=== PATIENT | female | born 1950 | race Two or more races ===

== ENCOUNTER 2020-10-28 21:45 | Inpatient (IN) | payer OTHER, MEDICAID ==
[~2020-10-28] VITALS: Ht 157.5 cm; Wt 76.0 kg
[2020-10-28] MEDS ORDERED: ROCURONIUM 10MG/ML 10ML VIAL IV ONE ×2 (21:55→23:30)
[2020-10-28] MEDS ORDERED: ETOMIDATE (2MG/ML) 20ML VIAL IV ONE ×2 (21:57→23:30)
[2020-10-28] MEDS ORDERED: PROPOFOL 100 ML IV ONE (22:02)
[2020-10-28] MEDS ORDERED: ACCU-CHEK COMFORT CURVE STRIP VI ONE (22:15)
[2020-10-28 22:26] LABS: Basophils # (auto) 0.1 10 ^3/uL (0-0.2); Basophils % (auto) 0.7 % (0.0-2.0); Eosinophils # (auto) 0.1 10 ^3/uL (0-0.8); Eosinophils % (auto) 0.9 % (0.0-7.0); Hematocrit 34.3 % (36.0-46.0); Hemoglobin 10.9 g/dL (12.2-16.2); Lymphocytes # (auto) 3.6 10 ^3/uL (0.4-5.4); Lymphocytes % (auto) 28.8 % (10.0-50.0); Mean Corpuscular Hemoglobin 31.2 pg (28.0-32.0); Mean Corpuscular Hgb Conc. 31.8 g/dL (32.0-36.0); Mean Corpuscular Volume 98.2 fL (80.0-100.0); Monocytes # (auto) 1.3 10 ^3/uL (0-1.3); Monocytes % (auto) 10.1 % (0.0-12.0); Neutrophils # (auto) 7.5 10 ^3/uL (1.6-8.6); Neutrophils % (auto) 59.5 % (37.0-80.0); Nucleated Red Blood Cells % 0.4 %; Red Blood Cells 3.49 10^6/uL (4.0-5.20); Red Cell Distribution Width 16.3 % (11.8-14.3); White Blood Cell 12.5 10^3/uL (4.4-10.8)
[2020-10-28 22:38] LABS: Albumin 3.1 g/dL (3.4-5.0); Magnesium 2.8 mg/dL (1.6-2.6); Potassium 4.8 mmol/L (3.5-5.1)
[2020-10-28 22:45] LABS: BUN/Creatinine Ratio 6.4; Bilirubin, Total 1.1 mg/dL (0.2-1.0); Phosphorus 6.6 mg/dL (2.5-4.90); Total Protein 7.1 g/dL (6.4-8.2)
[2020-10-28] MEDS: PROPOFOL 100 ML IV SCH (23:25)
[2020-10-28] MEDS ORDERED: VANCOMYCIN 1GM/250ML 250 ML IV ONE (23:45)
[2020-10-29] VITALS (73 sets, daily range): BP systolic 81–194; BP diastolic 18–70
[2020-10-29 01:18] LABS: Urine Bacteria FEW /hpf (None Seen); Urine Blood 2+ /uL (Negative); Urine Hyaline Cast FEW /lpf (0 - 2); Urine Specific Gravity 1.013 (1.001-1.035); Urine WBC 29 /hpf (0 - 5); Urine WBC Clumps PRESENT /hpf (None Seen)
[2020-10-29 01:26] LABS: Amphetamine Screen, Urine NEGATIVE (NEGATIVE); Barbiturate Scree,Urine NEGATIVE (NEGATIVE); Benzodiazephine Screen, Urine POSITIVE (NEGATIVE); Cannabinoid Screen, Urine NEGATIVE (NEGATIVE); Cocaine Screen, Urine NEGATIVE (NEGATIVE); Opiate Scree,Urine NEGATIVE (NEGATIVE); Phencyclidine Screen, Urine NEGATIVE (NEGATIVE)
[2020-10-29] MEDS ORDERED: MORPHINE SULF INJ 2 MG/ML SYRINGE 1ML IV PRN (01:30)
[2020-10-29] MEDS ORDERED: VANCOMYCIN PER PHARMACY 0 MG IV SCH (01:30)
[2020-10-29] MEDS ORDERED: DEXTROSE (50%) 50ML SYRG IV PRN (01:30)
[2020-10-29] MEDS ORDERED: ALBUTEROL SULF HFA 90MCG INH 200DOSE IN PRN (01:30)
[2020-10-29] MEDS ORDERED: HYDROcodone-ACET 5/325MG TAB PO PRN (01:30)
[2020-10-29] MEDS ORDERED: NITROGLYCERIN 0.4 MG SL TAB SL PRN (01:30)
[2020-10-29] MEDS ORDERED: REMDESIVIR PER PHARMACY 0 ML IV SCH (01:30)
[2020-10-29] MEDS ORDERED: ONDANSETRON HCL 4 MG/2 ML VIAL IV PRN (01:30)
[2020-10-29] MEDS ORDERED: METOPROLOL TARTRATE 1MG/1ML-5ML VIAL IV PRN (02:00)
[2020-10-29] MEDS: hydrALAZINE HCL 20 MG/ML VL IV PRN (02:53)
[2020-10-29] MEDS: BUDESONIDE (INHALATION) 0.5 MG/2 ML NEB NEB SCH ×2 (06:52→19:01)
[2020-10-29] MEDS: ALBUTEROL SULF 2.5 MG/0.5ML(0.5%) NEB SOLN NEB SCH ×3 (06:52→19:01)
[2020-10-29] MEDS: PROPOFOL 100 ML IV SCH ×2 (08:21→16:17)
[2020-10-29] MEDS: MIDAZOLAM DRIP 50 mg/50mL 50 ML IV SCH ×2 (08:22→16:18)
[2020-10-29] MEDS: NOREPINEPHRINE 8 MG/250ML KIT 250 ML IV SCH (08:25)
[2020-10-29] MEDS: SODIUM CHLOR 0.9% PF (SALINE LOCK) 10ML VIAL/SYR IV SCH ×3 (08:51→22:06)
[2020-10-29] MEDS: DOXYCYCLINE 100MG/250ML 250 ML IV SCH ×2 (08:52→22:06)
[2020-10-29] MEDS: ACCU-CHEK COMFORT CURVE STRIP VI SCH ×4 (08:52→22:13)
[2020-10-29] MEDS: FAMOTIDINE (10MG/ML) 2ML VL IV SCH (08:54)
[2020-10-29] MEDS: DexAMETHasone SOD PHOS 10MG/1ML VIAL INJ IV SCH (08:54)
[2020-10-29] MEDS: ASCORBIC ACID 1,000 MG TAB PO SCH (08:55)
[2020-10-29] MEDS: ZINC SULFATE 220mg CAP or TAB PO SCH (08:55)
[2020-10-29] MEDS: MULTIPLE VITAMIN TAB PO SCH (08:56)
[2020-10-29] MEDS: CHOLECALCIFEROL (VITD3) 2,000 UNIT CAP/TAB PO SCH (08:56)
[2020-10-29] MEDS: HEPARIN SODIUM (PORCINE) 5000 UNITS/ML 1ML VIAL SC SCH ×2 (08:57→22:12)
[2020-10-29 08:59] LABS: BUN/Creatinine Ratio 6.7; Calcium 8.3 mg/dL (8.5-10.1); Potassium 4.9 mmol/L (3.5-5.1)
[2020-10-29] MEDS ORDERED: FUROSEMIDE 40 MG/4 ML VIAL IV SCH (10:00)
[2020-10-29] MEDS ORDERED: BUDESONIDE (INHALATION) 180 MCG IH IN SCH (10:00)
[2020-10-29] MEDS: InsuLIN REG 1unit/0.01ml Soln (100units/ml) SC SCH ×4 (11:30→22:13)
[2020-10-29] MEDS ORDERED: REMDESIVIR 200 MG in NS 210ml LOADING DOSE ADULT IV ONE (15:00)
[2020-10-30] VITALS (97 sets, daily range): BP systolic 103–194; BP diastolic 44–64
[2020-10-30] MEDS ORDERED: EPOETIN ALFA-EPBX 10,000 UNIT/1ML VIAL SC ONE (06:00)
[2020-10-30] MEDS: SODIUM CHLOR 0.9% PF (SALINE LOCK) 10ML VIAL/SYR IV SCH ×3 (06:13→22:02)
[2020-10-30] MEDS: InsuLIN REG 1unit/0.01ml Soln (100units/ml) SC SCH ×4 (06:26→22:00)
[2020-10-30] MEDS: ACCU-CHEK COMFORT CURVE STRIP VI SCH ×4 (06:27→22:02)
[2020-10-30 07:25] LABS: Basophils # (auto) 0 10 ^3/uL (0-0.2); Basophils % (auto) 0.2 % (0.0-2.0); Eosinophils # (auto) 0 10 ^3/uL (0-0.8); Hematocrit 26.1 % (36.0-46.0); Hemoglobin 8.8 g/dL (12.2-16.2); Lymphocytes # (auto) 0.8 10 ^3/uL (0.4-5.4); Mean Corpuscular Hemoglobin 31.5 pg (28.0-32.0); Mean Corpuscular Hgb Conc. 33.9 g/dL (32.0-36.0); Mean Corpuscular Volume 92.9 fL (80.0-100.0); Monocytes # (auto) 0.8 10 ^3/uL (0-1.3); Monocytes % (auto) 7.6 % (0.0-12.0); Neutrophils # (auto) 8.3 10 ^3/uL (1.6-8.6); Neutrophils % (auto) 84.2 % (37.0-80.0); Nucleated Red Blood Cells % 0.1 %; Red Blood Cells 2.81 10^6/uL (4.0-5.20); Red Cell Distribution Width 15.7 % (11.8-14.3); White Blood Cell 9.9 10^3/uL (4.4-10.8)
[2020-10-30 07:35] LABS: Albumin 2.7 g/dL (3.4-5.0); BUN/Creatinine Ratio 8.2; Calcium 7.9 mg/dL (8.5-10.1); Magnesium 2.4 mg/dL (1.6-2.6); Potassium 4.9 mmol/L (3.5-5.1)
[2020-10-30 07:38] LABS: Bilirubin, Total 1.1 mg/dL (0.2-1.0); Total Protein 5.6 g/dL (6.4-8.2)
[2020-10-30] MEDS: NOREPINEPHRINE 8 MG/250ML KIT 250 ML IV SCH (07:45)
[2020-10-30] MEDS ORDERED: SODIUM CHLORIDE LOCK 30 ML ONE (08:32)
[2020-10-30] MEDS ORDERED: LIDOCAINE HCL 2% TOP JELLY 5ML TOP ONE (08:32)
[2020-10-30] MEDS: BUDESONIDE (INHALATION) 0.5 MG/2 ML NEB NEB SCH ×2 (10:00→23:04)
[2020-10-30] MEDS: CHOLECALCIFEROL (VITD3) 2,000 UNIT CAP/TAB PO SCH (10:00)
[2020-10-30] MEDS: ZINC SULFATE 220mg CAP or TAB PO SCH (10:46)
[2020-10-30] MEDS: MULTIPLE VITAMIN TAB PO SCH (10:46)
[2020-10-30] MEDS: ASCORBIC ACID 1,000 MG TAB PO SCH (10:46)
[2020-10-30] MEDS: HEPARIN SODIUM (PORCINE) 5000 UNITS/ML 1ML VIAL SC SCH ×2 (10:46→22:02)
[2020-10-30] MEDS ORDERED: BUMETANIDE 2.5mg/10ml (0.25 mg/ml) INJ IV ONE (13:00)
[2020-10-30] MEDS: PROPOFOL 100 ML IV SCH ×2 (13:55→22:13)
[2020-10-30] MEDS: DexAMETHasone SOD PHOS 10MG/1ML VIAL INJ IV SCH (13:56)
[2020-10-30] MEDS: FAMOTIDINE (10MG/ML) 2ML VL IV SCH (13:56)
[2020-10-30] MEDS ORDERED: REMDESIVIR 100mg 100 MG in SODIUM CHL 0.9% 230 ML IV SCH (15:00)
[2020-10-30] MEDS: ALBUTEROL SULF 2.5 MG/0.5ML(0.5%) NEB SOLN NEB SCH ×3 (15:44→23:04)
[2020-10-30] MEDS ORDERED: VANCOMYCIN 1GM/250ML 250 ML IV ONE (17:00)
[2020-10-30] MEDS: DOXYCYCLINE 100MG/250ML 250 ML IV SCH ×2 (19:53→22:01)
[2020-10-30] MEDS: hydrALAZINE HCL 20 MG/ML VL IV PRN (22:12)
[2020-10-31] VITALS (86 sets, daily range): BP systolic 101–178; BP diastolic 15–75
[2020-10-31] MEDS ORDERED: VANCOMYCIN 1GM/250ML 250 ML IV ONE
[2020-10-31] MEDS: PROPOFOL 100 ML IV SCH ×3 (01:15→22:57)
[2020-10-31] MEDS: SODIUM CHLOR 0.9% PF (SALINE LOCK) 10ML VIAL/SYR IV SCH ×3 (05:08→21:04)
[2020-10-31] MEDS: ACCU-CHEK COMFORT CURVE STRIP VI SCH ×4 (05:09→21:09)
[2020-10-31] MEDS: InsuLIN REG 1unit/0.01ml Soln (100units/ml) SC SCH ×4 (05:09→21:24)
[2020-10-31 05:48] LABS: INR 1.21 (0.9-1.15); Partial Thromboplastin Time 27.2 sec (23.6-33.0)
[2020-10-31 05:56] LABS: Basophils # (auto) 0 10 ^3/uL (0-0.2); Eosinophils # (auto) 0 10 ^3/uL (0-0.8); Hematocrit 27.1 % (36.0-46.0); Hemoglobin 9.3 g/dL (12.2-16.2); Lymphocytes # (auto) 0.5 10 ^3/uL (0.4-5.4); Lymphocytes % (auto) 5.8 % (10.0-50.0); Mean Corpuscular Hemoglobin 31.9 pg (28.0-32.0); Mean Corpuscular Hgb Conc. 34.2 g/dL (32.0-36.0); Mean Corpuscular Volume 93.2 fL (80.0-100.0); Monocytes # (auto) 0.5 10 ^3/uL (0-1.3); Monocytes % (auto) 5.8 % (0.0-12.0); Neutrophils # (auto) 7.8 10 ^3/uL (1.6-8.6); Neutrophils % (auto) 88.4 % (37.0-80.0); Nucleated Red Blood Cells % 0.2 %; Red Blood Cells 2.91 10^6/uL (4.0-5.20); White Blood Cell 8.8 10^3/uL (4.4-10.8)
[2020-10-31 05:59] LABS: Potassium 4.5 mmol/L (3.5-5.1)
[2020-10-31 06:07] LABS: Albumin 2.5 g/dL (3.4-5.0); BUN/Creatinine Ratio 8.6; Bilirubin, Total 1.2 mg/dL (0.2-1.0); Magnesium 2.4 mg/dL (1.6-2.6)
[2020-10-31] MEDS: ALBUTEROL SULF 2.5 MG/0.5ML(0.5%) NEB SOLN NEB SCH ×3 (07:15→18:50)
[2020-10-31] MEDS: BUDESONIDE (INHALATION) 0.5 MG/2 ML NEB NEB SCH ×2 (07:16→18:50)
[2020-10-31] MEDS: NOREPINEPHRINE 8 MG/250ML KIT 250 ML IV SCH (07:45)
[2020-10-31] MEDS: MIDAZOLAM DRIP 50 mg/50mL 50 ML IV SCH (07:45)
[2020-10-31] MEDS: FAMOTIDINE (10MG/ML) 2ML VL IV SCH (09:52)
[2020-10-31] MEDS: DexAMETHasone SOD PHOS 10MG/1ML VIAL INJ IV SCH (09:52)
[2020-10-31] MEDS: DOXYCYCLINE 100MG/250ML 250 ML IV SCH ×2 (09:52→21:05)
[2020-10-31] MEDS: ZINC SULFATE 220mg CAP or TAB PO SCH (09:53)
[2020-10-31] MEDS: ASCORBIC ACID 1,000 MG TAB PO SCH (09:53)
[2020-10-31] MEDS: HEPARIN SODIUM (PORCINE) 5000 UNITS/ML 1ML VIAL SC SCH ×2 (09:53→21:08)
[2020-10-31] MEDS: MULTIPLE VITAMIN TAB PO SCH (09:53)
[2020-10-31] MEDS: CHOLECALCIFEROL (VITD3) 2,000 UNIT CAP/TAB PO SCH (15:42)
[2020-11-01] VITALS (106 sets, daily range): BP systolic 94–176; BP diastolic 27–62
[2020-11-01] MEDS: PROPOFOL 100 ML IV SCH ×5 (01:51→20:14)
[2020-11-01 05:24] LABS: Basophils # (auto) 0 10 ^3/uL (0-0.2); Eosinophils # (auto) 0 10 ^3/uL (0-0.8); Hemoglobin 9.1 g/dL (12.2-16.2); Lymphocytes # (auto) 0.7 10 ^3/uL (0.4-5.4); Lymphocytes % (auto) 7.7 % (10.0-50.0); Mean Corpuscular Hemoglobin 31.5 pg (28.0-32.0); Mean Corpuscular Hgb Conc. 33.9 g/dL (32.0-36.0); Mean Corpuscular Volume 92.9 fL (80.0-100.0); Monocytes # (auto) 0.9 10 ^3/uL (0-1.3); Neutrophils # (auto) 7.2 10 ^3/uL (1.6-8.6); Neutrophils % (auto) 82.3 % (37.0-80.0); Red Cell Distribution Width 16.4 % (11.8-14.3); White Blood Cell 8.8 10^3/uL (4.4-10.8)
[2020-11-01 06:03] LABS: Potassium 4.1 mmol/L (3.5-5.1)
[2020-11-01 06:07] LABS: BUN/Creatinine Ratio 10.9; Calcium 8.4 mg/dL (8.5-10.1); Magnesium 2.6 mg/dL (1.6-2.6)
[2020-11-01] MEDS: ACCU-CHEK COMFORT CURVE STRIP VI SCH ×4 (06:23→21:05)
[2020-11-01] MEDS: InsuLIN REG 1unit/0.01ml Soln (100units/ml) SC SCH ×4 (06:25→21:08)
[2020-11-01] MEDS ORDERED: SODIUM CHL 0.9% 1000 ML BAG XX ONE (07:00)
[2020-11-01] MEDS: BUDESONIDE (INHALATION) 0.5 MG/2 ML NEB NEB SCH ×2 (07:06→22:25)
[2020-11-01] MEDS: ALBUTEROL SULF 2.5 MG/0.5ML(0.5%) NEB SOLN NEB SCH ×3 (07:06→22:25)
[2020-11-01] MEDS: NOREPINEPHRINE 8 MG/250ML KIT 250 ML IV SCH (07:45)
[2020-11-01] MEDS: MIDAZOLAM DRIP 50 mg/50mL 50 ML IV SCH (07:45)
[2020-11-01] MEDS: ZINC SULFATE 220mg CAP or TAB PO SCH (09:52)
[2020-11-01] MEDS: ASCORBIC ACID 1,000 MG TAB PO SCH (09:52)
[2020-11-01] MEDS: DOXYCYCLINE 100MG/250ML 250 ML IV SCH ×2 (09:52→23:34)
[2020-11-01] MEDS: DexAMETHasone SOD PHOS 10MG/1ML VIAL INJ IV SCH (09:52)
[2020-11-01] MEDS: FAMOTIDINE (10MG/ML) 2ML VL IV SCH (09:52)
[2020-11-01] MEDS: MULTIPLE VITAMIN TAB PO SCH (09:52)
[2020-11-01] MEDS: CHOLECALCIFEROL (VITD3) 2,000 UNIT CAP/TAB PO SCH (09:53)
[2020-11-01] MEDS: HEPARIN SODIUM (PORCINE) 5000 UNITS/ML 1ML VIAL SC SCH ×2 (09:54→21:04)
[2020-11-01] MEDS: SODIUM CHLOR 0.9% PF (SALINE LOCK) 10ML VIAL/SYR IV SCH ×2 (11:41→21:02)
[2020-11-01] MEDS: CALCIUM ACETATE 667 MG CAP NG SCH ×2 (14:00→21:03)
[2020-11-01] MEDS ORDERED: Nepro With Carb Steady 1 Liter Bottle GT SCH (16:30)
[2020-11-01] MEDS: MEROPENEM 500MG IVPB 50 ML IV SCH (20:04)
[2020-11-01] MEDS ORDERED: EPOETIN ALFA-EPBX 10,000 UNIT/1ML VIAL SC ONE (21:00)
[2020-11-02] VITALS (100 sets, daily range): BP systolic 104–165; BP diastolic 30–118
[2020-11-02] MEDS: hydrALAZINE HCL 20 MG/ML VL IV PRN (02:42)
[2020-11-02] MEDS: PROPOFOL 100 ML IV SCH ×2 (04:02→08:41)
[2020-11-02] MEDS: BUDESONIDE (INHALATION) 0.5 MG/2 ML NEB NEB SCH ×2 (06:06→18:45)
[2020-11-02] MEDS: ALBUTEROL SULF 2.5 MG/0.5ML(0.5%) NEB SOLN NEB SCH ×3 (06:06→18:45)
[2020-11-02] MEDS: InsuLIN REG 1unit/0.01ml Soln (100units/ml) SC SCH ×4 (06:42→22:05)
[2020-11-02] MEDS: ACCU-CHEK COMFORT CURVE STRIP VI SCH ×4 (06:42→22:04)
[2020-11-02] MEDS: CALCIUM ACETATE 667 MG CAP NG SCH ×3 (06:45→22:03)
[2020-11-02] MEDS: SODIUM CHLOR 0.9% PF (SALINE LOCK) 10ML VIAL/SYR IV SCH ×3 (06:45→22:03)
[2020-11-02] MEDS: NOREPINEPHRINE 8 MG/250ML KIT 250 ML IV SCH (07:45)
[2020-11-02] MEDS: MIDAZOLAM DRIP 50 mg/50mL 50 ML IV SCH (07:45)
[2020-11-02] MEDS: DexAMETHasone SOD PHOS 10MG/1ML VIAL INJ IV SCH (08:40)
[2020-11-02] MEDS: FAMOTIDINE (10MG/ML) 2ML VL IV SCH (08:40)
[2020-11-02] MEDS: MEROPENEM 500MG IVPB 50 ML IV SCH ×2 (08:40→20:10)
[2020-11-02] MEDS: ZINC SULFATE 220mg CAP or TAB PO SCH (08:41)
[2020-11-02] MEDS: ASCORBIC ACID 1,000 MG TAB PO SCH (08:41)
[2020-11-02] MEDS: MULTIPLE VITAMIN TAB PO SCH (08:42)
[2020-11-02] MEDS: CHOLECALCIFEROL (VITD3) 2,000 UNIT CAP/TAB PO SCH (08:42)
[2020-11-02 09:39] LABS: Basophils # (auto) 0 10 ^3/uL (0-0.2); Basophils % (auto) 0.1 % (0.0-2.0); Eosinophils # (auto) 0 10 ^3/uL (0-0.8); Hemoglobin 9.6 g/dL (12.2-16.2); Lymphocytes % (auto) 7.8 % (10.0-50.0); Mean Corpuscular Hemoglobin 30.8 pg (28.0-32.0); Mean Corpuscular Hgb Conc. 33.3 g/dL (32.0-36.0); Mean Corpuscular Volume 92.7 fL (80.0-100.0); Monocytes # (auto) 1.4 10 ^3/uL (0-1.3); Neutrophils # (auto) 10.2 10 ^3/uL (1.6-8.6); Neutrophils % (auto) 81.1 % (37.0-80.0); Red Blood Cells 3.13 10^6/uL (4.0-5.20); Red Cell Distribution Width 16.6 % (11.8-14.3); White Blood Cell 12.5 10^3/uL (4.4-10.8)
[2020-11-02 10:01] LABS: Albumin 2.3 g/dL (3.4-5.0); Calcium 8.2 mg/dL (8.5-10.1); Potassium 4.7 mmol/L (3.5-5.1)
[2020-11-02 10:04] LABS: Total Protein 5.6 g/dL (6.4-8.2)
[2020-11-02] MEDS ORDERED: HEPARIN SODIUM (PORCINE) 5000 UNITS/ML 1ML VIAL ONE (11:09)
[2020-11-02] MEDS: DOXYCYCLINE 100MG/250ML 250 ML IV SCH ×2 (11:22→22:36)
[2020-11-02] MEDS: HEPARIN SODIUM (PORCINE) 5000 UNITS/ML 1ML VIAL SC SCH ×2 (11:23→22:04)
[2020-11-03] VITALS (99 sets, daily range): BP systolic 17–153; BP diastolic 28–50
[2020-11-03] MEDS: PROPOFOL 100 ML IV SCH ×2 (01:39→22:15)
[2020-11-03] MEDS ORDERED: FUROSEMIDE 100 MG/10ML VIAL IV ONE (05:00)
[2020-11-03] MEDS: CALCIUM ACETATE 667 MG CAP NG SCH ×3 (05:06→22:13)
[2020-11-03] MEDS: InsuLIN REG 1unit/0.01ml Soln (100units/ml) SC SCH ×4 (07:00→22:00)
[2020-11-03 07:09] LABS: Basophils # (auto) 0 10 ^3/uL (0-0.2); Basophils % (auto) 0.2 % (0.0-2.0); Eosinophils # (auto) 0 10 ^3/uL (0-0.8); Eosinophils % (auto) 0.1 % (0.0-7.0); Hematocrit 26.9 % (36.0-46.0); Hemoglobin 9.1 g/dL (12.2-16.2); Lymphocytes # (auto) 1.7 10 ^3/uL (0.4-5.4); Lymphocytes % (auto) 17.3 % (10.0-50.0); Mean Corpuscular Hemoglobin 31.3 pg (28.0-32.0); Mean Corpuscular Hgb Conc. 33.9 g/dL (32.0-36.0); Mean Corpuscular Volume 92.5 fL (80.0-100.0); Monocytes # (auto) 1.1 10 ^3/uL (0-1.3); Monocytes % (auto) 11.5 % (0.0-12.0); Neutrophils # (auto) 6.9 10 ^3/uL (1.6-8.6); Neutrophils % (auto) 70.9 % (37.0-80.0); Nucleated Red Blood Cells % 0.1 %; Red Blood Cells 2.91 10^6/uL (4.0-5.20); Red Cell Distribution Width 16.3 % (11.8-14.3); White Blood Cell 9.7 10^3/uL (4.4-10.8)
[2020-11-03] MEDS: SODIUM CHLOR 0.9% PF (SALINE LOCK) 10ML VIAL/SYR IV SCH ×3 (07:17→22:13)
[2020-11-03] MEDS: ACCU-CHEK COMFORT CURVE STRIP VI SCH ×4 (07:17→22:13)
[2020-11-03 07:18] LABS: Calcium 7.7 mg/dL (8.5-10.1); Magnesium 2.6 mg/dL (1.6-2.6); Potassium 4.9 mmol/L (3.5-5.1)
[2020-11-03 07:20] LABS: BUN/Creatinine Ratio 14.7
[2020-11-03] MEDS: MIDAZOLAM DRIP 50 mg/50mL 50 ML IV SCH (07:45)
[2020-11-03] MEDS: NOREPINEPHRINE 8 MG/250ML KIT 250 ML IV SCH ×2 (07:45→17:11)
[2020-11-03] MEDS: MULTIPLE VITAMIN TAB PO SCH (08:25)
[2020-11-03] MEDS: CHOLECALCIFEROL (VITD3) 2,000 UNIT CAP/TAB PO SCH (08:25)
[2020-11-03] MEDS: MEROPENEM 500MG IVPB 50 ML IV SCH ×2 (08:25→20:53)
[2020-11-03] MEDS: ASCORBIC ACID 1,000 MG TAB PO SCH (08:25)
[2020-11-03] MEDS: FAMOTIDINE (10MG/ML) 2ML VL IV SCH (08:25)
[2020-11-03] MEDS: ZINC SULFATE 220mg CAP or TAB PO SCH (08:25)
[2020-11-03] MEDS: HEPARIN SODIUM (PORCINE) 5000 UNITS/ML 1ML VIAL SC SCH ×2 (08:30→22:14)
[2020-11-03] MEDS: BUDESONIDE (INHALATION) 0.5 MG/2 ML NEB NEB SCH ×2 (10:00→18:37)
[2020-11-03] MEDS: ALBUTEROL SULF 2.5 MG/0.5ML(0.5%) NEB SOLN NEB SCH ×3 (14:15→18:36)
[2020-11-03] MEDS: ALBUMIN 25% 100 ML IV SCH ×2 (17:45→17:47)
[2020-11-04] VITALS (105 sets, daily range): BP systolic 112–157; BP diastolic 31–50
[2020-11-04] MEDS: PROPOFOL 100 ML IV SCH ×3 (04:38→22:20)
[2020-11-04] MEDS: ACETAMINOPHEN 500 MG TAB PO PRN (04:45)
[2020-11-04] MEDS: SODIUM CHLOR 0.9% PF (SALINE LOCK) 10ML VIAL/SYR IV SCH ×3 (06:00→22:08)
[2020-11-04] MEDS: ACCU-CHEK COMFORT CURVE STRIP VI SCH ×4 (06:00→22:09)
[2020-11-04] MEDS: InsuLIN REG 1unit/0.01ml Soln (100units/ml) SC SCH ×4 (06:00→22:00)
[2020-11-04] MEDS: BUDESONIDE (INHALATION) 0.5 MG/2 ML NEB NEB SCH ×2 (06:05→18:48)
[2020-11-04] MEDS: ALBUTEROL SULF 2.5 MG/0.5ML(0.5%) NEB SOLN NEB SCH ×3 (06:05→18:48)
[2020-11-04 06:06] LABS: Basophils # (auto) 0.1 10 ^3/uL (0-0.2); Eosinophils # (auto) 0.1 10 ^3/uL (0-0.8); Hemoglobin 8.4 g/dL (12.2-16.2); Lymphocytes # (auto) 1.2 10 ^3/uL (0.4-5.4); Mean Corpuscular Hemoglobin 31.4 pg (28.0-32.0); Monocytes # (auto) 1.1 10 ^3/uL (0-1.3); Red Blood Cells 2.66 10^6/uL (4.0-5.20)
[2020-11-04 06:08] LABS: Basophils % (auto) 0.6 % (0.0-2.0); Eosinophils % (auto) 0.6 % (0.0-7.0); Hematocrit 24.4 % (36.0-46.0); Lymphocytes % (auto) 12.4 % (10.0-50.0); Mean Corpuscular Hgb Conc. 34.3 g/dL (32.0-36.0); Mean Corpuscular Volume 91.7 fL (80.0-100.0); Monocytes % (auto) 10.7 % (0.0-12.0); Neutrophils # (auto) 7.6 10 ^3/uL (1.6-8.6); Neutrophils % (auto) 75.7 % (37.0-80.0); Red Cell Distribution Width 16.1 % (11.8-14.3); White Blood Cell 10.1 10^3/uL (4.4-10.8)
[2020-11-04] MEDS: CALCIUM ACETATE 667 MG CAP NG SCH ×3 (06:20→22:08)
[2020-11-04 06:38] LABS: BUN/Creatinine Ratio 12.5; Calcium 7.8 mg/dL (8.5-10.1); Magnesium 2.5 mg/dL (1.6-2.6); Potassium 4.4 mmol/L (3.5-5.1)
[2020-11-04] MEDS: MIDAZOLAM DRIP 50 mg/50mL 50 ML IV SCH (07:45)
[2020-11-04] MEDS: FAMOTIDINE (10MG/ML) 2ML VL IV SCH (09:31)
[2020-11-04] MEDS: MEROPENEM 500MG IVPB 50 ML IV SCH ×2 (09:31→20:26)
[2020-11-04] MEDS: ZINC SULFATE 220mg CAP or TAB PO SCH (09:33)
[2020-11-04] MEDS: CHOLECALCIFEROL (VITD3) 2,000 UNIT CAP/TAB PO SCH (09:33)
[2020-11-04] MEDS: MULTIPLE VITAMIN TAB PO SCH (09:33)
[2020-11-04] MEDS: ASCORBIC ACID 1,000 MG TAB PO SCH (09:33)
[2020-11-04] MEDS: HEPARIN SODIUM (PORCINE) 5000 UNITS/ML 1ML VIAL SC SCH ×2 (12:51→22:19)
[2020-11-04] MEDS ORDERED: VANCOMYCIN 500 MG in D5W 5% 100 ML IV ONE (17:00)
[2020-11-05] VITALS (90 sets, daily range): BP systolic 102–172; BP diastolic 26–74
[2020-11-05] MEDS: hydrALAZINE HCL 20 MG/ML VL IV PRN (00:42)
[2020-11-05 05:25] LABS: Basophils # (auto) 0 10 ^3/uL (0-0.2); Basophils % (auto) 0.3 % (0.0-2.0); Eosinophils # (auto) 0.3 10 ^3/uL (0-0.8); Eosinophils % (auto) 2.2 % (0.0-7.0); Hematocrit 28.6 % (36.0-46.0); Hemoglobin 9.5 g/dL (12.2-16.2); Lymphocytes # (auto) 1.4 10 ^3/uL (0.4-5.4); Lymphocytes % (auto) 10.5 % (10.0-50.0); Mean Corpuscular Hemoglobin 30.9 pg (28.0-32.0); Mean Corpuscular Hgb Conc. 33.3 g/dL (32.0-36.0); Monocytes # (auto) 1.3 10 ^3/uL (0-1.3); Neutrophils # (auto) 10.4 10 ^3/uL (1.6-8.6); Nucleated Red Blood Cells % 0.1 %; Red Blood Cells 3.08 10^6/uL (4.0-5.20); Red Cell Distribution Width 16.2 % (11.8-14.3); White Blood Cell 13.5 10^3/uL (4.4-10.8)
[2020-11-05 05:38] LABS: INR 1.13 (0.9-1.15); Partial Thromboplastin Time 33.6 sec (23.6-33.0)
[2020-11-05 05:41] LABS: BUN/Creatinine Ratio 12.9; Calcium 8.5 mg/dL (8.5-10.1); Magnesium 2.8 mg/dL (1.6-2.6); Potassium 4.8 mmol/L (3.5-5.1)
[2020-11-05] MEDS: ALBUTEROL SULF 2.5 MG/0.5ML(0.5%) NEB SOLN NEB SCH ×3 (05:41→22:18)
[2020-11-05] MEDS: BUDESONIDE (INHALATION) 0.5 MG/2 ML NEB NEB SCH ×2 (05:41→22:18)
[2020-11-05] MEDS: InsuLIN REG 1unit/0.01ml Soln (100units/ml) SC SCH ×4 (05:50→21:26)
[2020-11-05] MEDS: ACCU-CHEK COMFORT CURVE STRIP VI SCH ×4 (05:50→21:26)
[2020-11-05] MEDS: SODIUM CHLOR 0.9% PF (SALINE LOCK) 10ML VIAL/SYR IV SCH ×3 (05:51→21:27)
[2020-11-05] MEDS: CALCIUM ACETATE 667 MG CAP NG SCH ×3 (05:51→21:27)
[2020-11-05] MEDS: MIDAZOLAM DRIP 50 mg/50mL 50 ML IV SCH (07:45)
[2020-11-05] MEDS: MEROPENEM 500MG IVPB 50 ML IV SCH ×2 (08:10→20:22)
[2020-11-05] MEDS: CHOLECALCIFEROL (VITD3) 2,000 UNIT CAP/TAB PO SCH (09:48)
[2020-11-05] MEDS: ASCORBIC ACID 1,000 MG TAB PO SCH (09:48)
[2020-11-05] MEDS: MULTIPLE VITAMIN TAB PO SCH (09:48)
[2020-11-05] MEDS: ZINC SULFATE 220mg CAP or TAB PO SCH (09:48)
[2020-11-05] MEDS: FAMOTIDINE (10MG/ML) 2ML VL IV SCH (09:48)
[2020-11-05] MEDS: HEPARIN SODIUM (PORCINE) 5000 UNITS/ML 1ML VIAL SC SCH ×2 (09:50→21:28)
[2020-11-05] MEDS: PROPOFOL 100 ML IV SCH (20:40)
[2020-11-06] VITALS (98 sets, daily range): BP systolic 60–224; BP diastolic 26–146
[2020-11-06] MEDS: PROPOFOL 100 ML IV SCH (03:39)
[2020-11-06 05:52] LABS: Basophils # (auto) 0 10 ^3/uL (0-0.2); Basophils % (auto) 0.5 % (0.0-2.0); Eosinophils # (auto) 0.4 10 ^3/uL (0-0.8); Eosinophils % (auto) 4.8 % (0.0-7.0); Hematocrit 26.3 % (36.0-46.0); Hemoglobin 8.9 g/dL (12.2-16.2); Lymphocytes # (auto) 0.9 10 ^3/uL (0.4-5.4); Lymphocytes % (auto) 12.1 % (10.0-50.0); Mean Corpuscular Hemoglobin 31.5 pg (28.0-32.0); Mean Corpuscular Volume 92.6 fL (80.0-100.0); Monocytes # (auto) 0.7 10 ^3/uL (0-1.3); Monocytes % (auto) 9.4 % (0.0-12.0); Neutrophils # (auto) 5.7 10 ^3/uL (1.6-8.6); Neutrophils % (auto) 73.2 % (37.0-80.0); Red Blood Cells 2.84 10^6/uL (4.0-5.20); Red Cell Distribution Width 15.9 % (11.8-14.3); White Blood Cell 7.8 10^3/uL (4.4-10.8)
[2020-11-06 06:13] LABS: Albumin 2.2 g/dL (3.4-5.0); Calcium 8.4 mg/dL (8.5-10.1)
[2020-11-06 06:18] LABS: BUN/Creatinine Ratio 12.4; Bilirubin, Total 0.9 mg/dL (0.2-1.0); Total Protein 5.7 g/dL (6.4-8.2)
[2020-11-06] MEDS: CALCIUM ACETATE 667 MG CAP NG SCH ×3 (06:31→22:21)
[2020-11-06] MEDS: ALBUTEROL SULF 2.5 MG/0.5ML(0.5%) NEB SOLN NEB SCH ×3 (06:38→19:01)
[2020-11-06] MEDS: BUDESONIDE (INHALATION) 0.5 MG/2 ML NEB NEB SCH ×2 (06:38→19:01)
[2020-11-06] MEDS: InsuLIN REG 1unit/0.01ml Soln (100units/ml) SC SCH ×4 (06:43→22:00)
[2020-11-06] MEDS: ACCU-CHEK COMFORT CURVE STRIP VI SCH ×4 (06:43→22:00)
[2020-11-06] MEDS: SODIUM CHLOR 0.9% PF (SALINE LOCK) 10ML VIAL/SYR IV SCH ×3 (07:15→22:01)
[2020-11-06] MEDS: MIDAZOLAM DRIP 50 mg/50mL 50 ML IV SCH (07:45)
[2020-11-06] MEDS: NOREPINEPHRINE 8 MG/250ML KIT 250 ML IV SCH (07:45)
[2020-11-06] MEDS: MEROPENEM 500MG IVPB 50 ML IV SCH (08:19)
[2020-11-06] MEDS ORDERED: SODIUM CHL 0.9% 1000 ML BAG XX ONE (09:15)
[2020-11-06] MEDS: FAMOTIDINE (10MG/ML) 2ML VL IV SCH (10:20)
[2020-11-06] MEDS: HEPARIN SODIUM (PORCINE) 5000 UNITS/ML 1ML VIAL SC SCH ×2 (10:26→22:35)
[2020-11-06] MEDS: MULTIPLE VITAMIN TAB PO SCH (10:34)
[2020-11-06] MEDS ORDERED: AMIODARONE HCL 150 MG in D5W 5% 100 ML IV ONE (15:45)
[2020-11-06] MEDS ORDERED: AMIODARONE 450mg/250ml AE 250 ML IV SCH (15:45)
[2020-11-06] MEDS ORDERED: VANCOMYCIN 750mg/250ml 250 ML IV ONE (17:00)
[2020-11-06] MEDS: ACETAMINOPHEN 500 MG TAB PO PRN (18:19)
[2020-11-06] MEDS ORDERED: EPOETIN ALFA-EPBX 10,000 UNIT/1ML VIAL SC ONE (21:00)
[2020-11-06] MEDS: AMIODARONE 450mg/250ml AE 250 ML IV SCH (22:00)
[2020-11-07] VITALS (79 sets, daily range): BP systolic 110–166; BP diastolic 5–124
[2020-11-07] MEDS: CALCIUM ACETATE 667 MG CAP NG SCH ×3 (06:00→21:40)
[2020-11-07] MEDS: SODIUM CHLOR 0.9% PF (SALINE LOCK) 10ML VIAL/SYR IV SCH ×3 (06:00→21:10)
[2020-11-07 06:17] LABS: Basophils # (auto) 0 10 ^3/uL (0-0.2); Basophils % (auto) 0.4 % (0.0-2.0); Eosinophils # (auto) 0.3 10 ^3/uL (0-0.8); Hematocrit 25.4 % (36.0-46.0); Hemoglobin 8.9 g/dL (12.2-16.2); Lymphocytes # (auto) 1.5 10 ^3/uL (0.4-5.4); Lymphocytes % (auto) 15.4 % (10.0-50.0); Mean Corpuscular Hemoglobin 32.2 pg (28.0-32.0); Mean Corpuscular Hgb Conc. 34.9 g/dL (32.0-36.0); Mean Corpuscular Volume 92.4 fL (80.0-100.0); Monocytes # (auto) 1.1 10 ^3/uL (0-1.3); Monocytes % (auto) 11.1 % (0.0-12.0); Neutrophils # (auto) 6.9 10 ^3/uL (1.6-8.6); Neutrophils % (auto) 70.1 % (37.0-80.0); Red Blood Cells 2.75 10^6/uL (4.0-5.20); Red Cell Distribution Width 16.2 % (11.8-14.3); White Blood Cell 9.8 10^3/uL (4.4-10.8)
[2020-11-07 06:18] LABS: Calcium 7.8 mg/dL (8.5-10.1); Magnesium 2.5 mg/dL (1.6-2.6); Potassium 3.8 mmol/L (3.5-5.1)
[2020-11-07] MEDS: ALBUTEROL SULF 2.5 MG/0.5ML(0.5%) NEB SOLN NEB SCH ×3 (06:21→21:36)
[2020-11-07] MEDS: BUDESONIDE (INHALATION) 0.5 MG/2 ML NEB NEB SCH ×2 (06:21→21:36)
[2020-11-07 06:22] LABS: BUN/Creatinine Ratio 9.1
[2020-11-07] MEDS: ACCU-CHEK COMFORT CURVE STRIP VI SCH ×4 (07:00→21:41)
[2020-11-07] MEDS: InsuLIN REG 1unit/0.01ml Soln (100units/ml) SC SCH ×4 (07:00→21:41)
[2020-11-07] MEDS: NOREPINEPHRINE 8 MG/250ML KIT 250 ML IV SCH (07:45)
[2020-11-07] MEDS: MIDAZOLAM DRIP 50 mg/50mL 50 ML IV SCH (07:45)
[2020-11-07] MEDS: MEROPENEM 500MG IVPB 50 ML IV SCH (08:06)
[2020-11-07] MEDS: FAMOTIDINE (10MG/ML) 2ML VL IV SCH (09:58)
[2020-11-07] MEDS: MULTIPLE VITAMIN TAB PO SCH (09:59)
[2020-11-07] MEDS: HEPARIN SODIUM (PORCINE) 5000 UNITS/ML 1ML VIAL SC SCH ×2 (10:00→21:12)
[2020-11-07] MEDS: AMIODARONE 450mg/250ml AE 250 ML IV SCH (13:00)
[2020-11-07] MEDS ORDERED: EPINEPHrine HCL 0.5 ML NEB NEB ONE (13:00)
[2020-11-07] MEDS ORDERED: LORazepam 2MG/ML-1ML VIAL IM ONE (14:30)
[2020-11-07] MEDS ORDERED: LORazepam 2MG/ML-1ML VIAL IV ONE (14:45)
[2020-11-07] MEDS: hydrALAZINE HCL 20 MG/ML VL IV PRN (17:16)
[2020-11-07] MEDS: PROPOFOL 100 ML IV SCH (22:15)
[2020-11-08] VITALS (37 sets, daily range): BP systolic 91–180; BP diastolic 31–92
[2020-11-08] MEDS: LORazepam 2MG/ML-1ML VIAL IV PRN ×3 (02:23→21:00)
[2020-11-08] MEDS: AMIODARONE 450mg/250ml AE 250 ML IV SCH ×3 (04:00→21:45)
[2020-11-08 05:26] LABS: Basophils # (auto) 0 10 ^3/uL (0-0.2); Basophils % (auto) 0.3 % (0.0-2.0); Eosinophils # (auto) 0.3 10 ^3/uL (0-0.8); Eosinophils % (auto) 2.4 % (0.0-7.0); Hematocrit 25.4 % (36.0-46.0); Hemoglobin 8.6 g/dL (12.2-16.2); Lymphocytes # (auto) 1.1 10 ^3/uL (0.4-5.4); Lymphocytes % (auto) 10.5 % (10.0-50.0); Mean Corpuscular Hemoglobin 31.4 pg (28.0-32.0); Mean Corpuscular Hgb Conc. 33.8 g/dL (32.0-36.0); Monocytes # (auto) 1.1 10 ^3/uL (0-1.3); Monocytes % (auto) 10.2 % (0.0-12.0); Neutrophils # (auto) 8.3 10 ^3/uL (1.6-8.6); Neutrophils % (auto) 76.6 % (37.0-80.0); Red Blood Cells 2.73 10^6/uL (4.0-5.20); Red Cell Distribution Width 15.8 % (11.8-14.3); White Blood Cell 10.9 10^3/uL (4.4-10.8)
[2020-11-08] MEDS: ALBUTEROL SULF 2.5 MG/0.5ML(0.5%) NEB SOLN NEB SCH ×3 (05:40→22:37)
[2020-11-08] MEDS: BUDESONIDE (INHALATION) 0.5 MG/2 ML NEB NEB SCH ×2 (05:40→22:37)
[2020-11-08 05:45] LABS: BUN/Creatinine Ratio 9.4; Calcium 8.5 mg/dL (8.5-10.1); Magnesium 2.6 mg/dL (1.6-2.6); Potassium 3.9 mmol/L (3.5-5.1)
[2020-11-08] MEDS: CALCIUM ACETATE 667 MG CAP NG SCH ×3 (06:00→22:00)
[2020-11-08] MEDS: SODIUM CHLOR 0.9% PF (SALINE LOCK) 10ML VIAL/SYR IV SCH ×3 (06:06→22:26)
[2020-11-08] MEDS: ACCU-CHEK COMFORT CURVE STRIP VI SCH ×4 (06:07→22:27)
[2020-11-08] MEDS: InsuLIN REG 1unit/0.01ml Soln (100units/ml) SC SCH ×4 (06:07→22:00)
[2020-11-08] MEDS: hydrALAZINE HCL 20 MG/ML VL IV PRN ×3 (06:41→18:38)
[2020-11-08] MEDS ORDERED: SODIUM CHL 0.9% 1000 ML BAG XX ONE (07:00)
[2020-11-08] MEDS: MIDAZOLAM DRIP 50 mg/50mL 50 ML IV SCH (07:45)
[2020-11-08] MEDS: NOREPINEPHRINE 8 MG/250ML KIT 250 ML IV SCH (07:45)
[2020-11-08] MEDS: MEROPENEM 500MG IVPB 50 ML IV SCH (08:05)
[2020-11-08] MEDS: HEPARIN SODIUM (PORCINE) 5000 UNITS/ML 1ML VIAL SC SCH ×2 (10:00→22:27)
[2020-11-08] MEDS: FAMOTIDINE (10MG/ML) 2ML VL IV SCH (10:00)
[2020-11-08] MEDS: MULTIPLE VITAMIN TAB PO SCH (10:00)
[2020-11-08] MEDS ORDERED: EPOETIN ALFA-EPBX 10,000 UNIT/1ML VIAL SC ONE (21:00)
[2020-11-08] MEDS: PROPOFOL 100 ML IV SCH (22:15)
[2020-11-09] VITALS (41 sets, daily range): BP systolic 69–195; BP diastolic 26–148
[2020-11-09] MEDS: LORazepam 2MG/ML-1ML VIAL IV PRN (01:32)
[2020-11-09] MEDS: AMIODARONE 450mg/250ml AE 250 ML IV SCH (01:32)
[2020-11-09] MEDS ORDERED: ATROPINE SULFATE 0.4 MG/1 ML VIAL ONE (01:34)
[2020-11-09] MEDS: CALCIUM ACETATE 667 MG CAP NG SCH ×3 (06:00→22:00)
[2020-11-09 06:14] LABS: Basophils # (auto) 0 10 ^3/uL (0-0.2); Basophils % (auto) 0.2 % (0.0-2.0); Eosinophils # (auto) 0.1 10 ^3/uL (0-0.8); Hematocrit 26.6 % (36.0-46.0); Hemoglobin 8.7 g/dL (12.2-16.2); Lymphocytes # (auto) 0.9 10 ^3/uL (0.4-5.4); Lymphocytes % (auto) 8.1 % (10.0-50.0); Mean Corpuscular Hemoglobin 30.6 pg (28.0-32.0); Mean Corpuscular Hgb Conc. 32.5 g/dL (32.0-36.0); Mean Corpuscular Volume 94.1 fL (80.0-100.0); Monocytes # (auto) 1.2 10 ^3/uL (0-1.3); Monocytes % (auto) 10.5 % (0.0-12.0); Neutrophils # (auto) 9.2 10 ^3/uL (1.6-8.6); Neutrophils % (auto) 80.2 % (37.0-80.0); Nucleated Red Blood Cells % 0.1 %; Red Blood Cells 2.83 10^6/uL (4.0-5.20); Red Cell Distribution Width 16.1 % (11.8-14.3); White Blood Cell 11.5 10^3/uL (4.4-10.8)
[2020-11-09] MEDS: SODIUM CHLOR 0.9% PF (SALINE LOCK) 10ML VIAL/SYR IV SCH ×3 (06:20→22:00)
[2020-11-09] MEDS: ACCU-CHEK COMFORT CURVE STRIP VI SCH ×4 (06:21→22:42)
[2020-11-09] MEDS: InsuLIN REG 1unit/0.01ml Soln (100units/ml) SC SCH ×4 (06:21→22:00)
[2020-11-09] MEDS: ALBUTEROL SULF 2.5 MG/0.5ML(0.5%) NEB SOLN NEB SCH ×3 (06:23→23:08)
[2020-11-09] MEDS: BUDESONIDE (INHALATION) 0.5 MG/2 ML NEB NEB SCH ×2 (06:24→23:08)
[2020-11-09 06:39] LABS: Calcium 9.1 mg/dL (8.5-10.1); Potassium 4.3 mmol/L (3.5-5.1)
[2020-11-09] MEDS: NOREPINEPHRINE 8 MG/250ML KIT 250 ML IV SCH (07:45)
[2020-11-09] MEDS: MIDAZOLAM DRIP 50 mg/50mL 50 ML IV SCH (07:45)
[2020-11-09] MEDS: MEROPENEM 500MG IVPB 50 ML IV SCH (08:13)
[2020-11-09] MEDS: MULTIPLE VITAMIN TAB PO SCH (10:00)
[2020-11-09] MEDS ORDERED: ACETAMINOPHEN 650 MG RECT SUPP PR PRN (10:00)
[2020-11-09] MEDS: FAMOTIDINE (10MG/ML) 2ML VL IV SCH (10:16)
[2020-11-09] MEDS: HEPARIN SODIUM (PORCINE) 5000 UNITS/ML 1ML VIAL SC SCH ×2 (10:18→22:40)
[2020-11-09] MEDS ORDERED: VANCOMYCIN 500 MG in D5W 5% 100 ML IV ONE (15:00)
[2020-11-09] MEDS ORDERED: LORazepam 2MG/ML-1ML VIAL IV PRN (19:00)
[2020-11-09] MEDS ORDERED: HALOPERIDOL LACTATE 5 MG/ML INJ VIAL ONE (19:55)
[2020-11-09] MEDS: HALOPERIDOL LACTATE 5 MG/ML INJ VIAL IM PRN (20:00)
[2020-11-09] MEDS: hydrALAZINE HCL 20 MG/ML VL IV PRN (20:01)
[2020-11-09] MEDS ORDERED: MORPHINE SULF INJ 2 MG/ML SYRINGE 1ML IV PRN (20:15)
[2020-11-09] MEDS ORDERED: MORPHINE SULF INJ 2 MG/ML SYRINGE 1ML ONE (20:23)
[2020-11-10] VITALS (26 sets, daily range): BP systolic 51–193; BP diastolic 13–100
[2020-11-10] MEDS: AMIODARONE 450mg/250ml AE 250 ML IV SCH ×3 (03:45→19:30)
[2020-11-10 05:24] LABS: Basophils # (auto) 0.1 10 ^3/uL (0-0.2); Basophils % (auto) 1.2 % (0.0-2.0); Eosinophils # (auto) 0.1 10 ^3/uL (0-0.8); Eosinophils % (auto) 1.2 % (0.0-7.0); Hematocrit 23.6 % (36.0-46.0); Lymphocytes # (auto) 1.1 10 ^3/uL (0.4-5.4); Lymphocytes % (auto) 9.9 % (10.0-50.0); Mean Corpuscular Hemoglobin 31.6 pg (28.0-32.0); Mean Corpuscular Hgb Conc. 33.9 g/dL (32.0-36.0); Mean Corpuscular Volume 93.3 fL (80.0-100.0); Monocytes # (auto) 1.3 10 ^3/uL (0-1.3); Monocytes % (auto) 11.8 % (0.0-12.0); Neutrophils # (auto) 8.1 10 ^3/uL (1.6-8.6); Neutrophils % (auto) 75.9 % (37.0-80.0); Nucleated Red Blood Cells % 0.1 %; Red Blood Cells 2.52 10^6/uL (4.0-5.20); Red Cell Distribution Width 15.9 % (11.8-14.3); White Blood Cell 10.7 10^3/uL (4.4-10.8)
[2020-11-10 05:42] LABS: Albumin 2.7 g/dL (3.4-5.0); Calcium 8.9 mg/dL (8.5-10.1); Magnesium 2.6 mg/dL (1.6-2.6); Potassium 4.1 mmol/L (3.5-5.1)
[2020-11-10 05:47] LABS: BUN/Creatinine Ratio 8.3; Bilirubin, Total 1.4 mg/dL (0.2-1.0); Total Protein 6.4 g/dL (6.4-8.2)
[2020-11-10] MEDS: HALOPERIDOL LACTATE 5 MG/ML INJ VIAL IM PRN (05:49)
[2020-11-10] MEDS: SODIUM CHLOR 0.9% PF (SALINE LOCK) 10ML VIAL/SYR IV SCH ×3 (05:51→22:00)
[2020-11-10] MEDS: CALCIUM ACETATE 667 MG CAP NG SCH ×3 (05:51→22:00)
[2020-11-10] MEDS: InsuLIN REG 1unit/0.01ml Soln (100units/ml) SC SCH ×4 (05:54→22:00)
[2020-11-10] MEDS: ACCU-CHEK COMFORT CURVE STRIP VI SCH ×4 (05:54→22:00)
[2020-11-10] MEDS: BUDESONIDE (INHALATION) 0.5 MG/2 ML NEB NEB SCH ×2 (06:20→22:06)
[2020-11-10] MEDS: ALBUTEROL SULF 2.5 MG/0.5ML(0.5%) NEB SOLN NEB SCH ×3 (06:20→22:06)
[2020-11-10] MEDS: MEROPENEM 500MG IVPB 50 ML IV SCH (08:00)
[2020-11-10] MEDS: MULTIPLE VITAMIN TAB PO SCH (09:07)
[2020-11-10] MEDS: FAMOTIDINE (10MG/ML) 2ML VL IV SCH (09:53)
[2020-11-10] MEDS: HEPARIN SODIUM (PORCINE) 5000 UNITS/ML 1ML VIAL SC SCH ×2 (09:55→22:00)
[2020-11-10] MEDS ORDERED: DIGOXIN 0.125 MG TAB PO ONE (12:00)
[2020-11-10] MEDS ORDERED: DIGOXIN (250MCG/ML) 2 ML AMPULE IV ONE (13:30)
[2020-11-10] MEDS: hydrALAZINE HCL 20 MG/ML VL IV PRN (19:15)
[2020-11-10] MEDS ORDERED: ETOMIDATE (2MG/ML) 20ML VIAL IV ONE (20:45)
[2020-11-10] MEDS ORDERED: SUCCINYLCHOLINE CHLORIDE 20 MG/ML 10ML VIAL IV ONE (20:45)
[2020-11-10] MEDS ORDERED: NOREPINEPHRINE 8 MG/250ML KIT 250 ML IV ONE (20:52)
[2020-11-10] MEDS ORDERED: DOPamine 1600MCG/ML D5W 250 ML IV ONE (21:03)
[2020-11-10] MEDS ORDERED: ALBUMIN 25% 100 ML IV ONE ×2 (21:07→21:15)
[2020-11-10] MEDS ORDERED: CARVEDILOL 3.125 MG TAB PO SCH (22:00)
[2020-11-10] MEDS ORDERED: DOPamine 1600MCG/ML D5W 250 ML IV SCH (22:15)
[2020-11-10] MEDS ORDERED: MIDAZOLAM DRIP 50 mg/50mL 50 ML IV SCH (22:15)
[2020-11-10] MEDS ORDERED: NOREPINEPHRINE 8 MG/250ML KIT 250 ML IV SCH (22:15)
[2020-11-10] MEDS ORDERED: fentaNYL Drip 2500mCg/250mlNS 250 ML IV SCH (22:15)
[2020-11-10 22:50] LABS: BUN/Creatinine Ratio 8.1; Calcium 11.2 mg/dL (8.5-10.1); Magnesium 2.9 mg/dL (1.6-2.6); Potassium 4.9 mmol/L (3.5-5.1)
[2020-11-11] VITALS: BP 64/22
[2020-11-11 00:15] VITALS: BP 47/32
[2020-11-11] MEDS ORDERED: SODIUM BICARBONATE 8.4% INJ 50ML SYRINGE IV ONE (00:28)
[2020-11-11] MEDS ORDERED: EPINEPHrine HCL 1 MG/10 ML SYRG IV ONE (00:28)
[2020-11-11] MEDS ORDERED: CALCIUM CHLOR(10%) 100MG/ML 10ML SYRINGE IV ONE (00:28)
[2020-11-12 16:05] LABS: Folate (Folic Acid) 12.91 ng/mL (5.38-24)
== END 2020-11-11 00:29 | DRG 870 ==
LOC: EDBD 21:45 → ER 21:50 → TELE 10-29 01:47 → DOU IN ICU 10-29 05:58
PROVIDERS: ADMIT Nurse Practitioner Family; ATTEND Internal Medicine Geriatric Medicine
PROC: 5A1955Z Respiratory Ventilation, Greater than 96 Consecutive Hours (ICD-10-PCS; principal; 2020-10-28)
PROC: 0BH17EZ Insertion of Endotracheal Airway into Trachea, Via Natural or Artificial Opening (ICD-10-PCS; 2020-10-28)
PROC: 5A12012 Performance of Cardiac Output, Single, Manual (ICD-10-PCS; 2020-10-29)
PROC: 06HY33Z Insertion of Infusion Device into Lower Vein, Percutaneous Approach (ICD-10-PCS; 2020-10-29)
PROC: 06HY33Z Insertion of Infusion Device into Lower Vein, Percutaneous Approach (ICD-10-PCS; 2020-10-29)
PROC: XW033E5 Introduction of Remdesivir Anti-infective into Peripheral Vein, Percutaneous Approach, New Technology Group 5 (ICD-10-PCS; 2020-10-29)
PROC: 5A1D70Z Performance of Urinary Filtration, Intermittent, Less than 6 Hours Per Day (ICD-10-PCS; 2020-10-30)
PROC: 5A1D70Z Performance of Urinary Filtration, Intermittent, Less than 6 Hours Per Day (ICD-10-PCS; 2020-11-03)
PROC: 5A1D70Z Performance of Urinary Filtration, Intermittent, Less than 6 Hours Per Day (ICD-10-PCS; 2020-11-06)
PROC: 5A09357 Assistance with Respiratory Ventilation, Less than 24 Consecutive Hours, Continuous Positive Airway Pressure (ICD-10-PCS; 2020-11-07)
PROC: 0BP1XDZ Removal of Intraluminal Device from Trachea, External Approach (ICD-10-PCS; 2020-11-07)
PROC: 5A1D70Z Performance of Urinary Filtration, Intermittent, Less than 6 Hours Per Day (ICD-10-PCS; 2020-11-08)
PROC: 0BH17EZ Insertion of Endotracheal Airway into Trachea, Via Natural or Artificial Opening (ICD-10-PCS; 2020-11-10)
PROC: 5A12012 Performance of Cardiac Output, Single, Manual (ICD-10-PCS; 2020-11-11)
DX: A41.89 Other specified sepsis (principal); U07.1 COVID-19; J12.82 Pneumonia due to coronavirus disease 2019; N18.6 End stage renal disease; J96.01 Acute respiratory failure with hypoxia; R65.21 Severe sepsis with septic shock; G92 Toxic encephalopathy; N17.9 Acute kidney failure, unspecified; J98.11 Atelectasis; J93.9 Pneumothorax, unspecified; N39.0 Urinary tract infection, site not specified; G93.1 Anoxic brain damage, not elsewhere classified; I50.30 Unspecified diastolic (congestive) heart failure; I13.2 Hypertensive heart and chronic kidney disease with heart failure and with stage 5 chronic kidney disease, or end stage renal disease; I46.9 Cardiac arrest, cause unspecified; I16.0 Hypertensive urgency; E66.9 Obesity, unspecified; I48.91 Unspecified atrial fibrillation; H54.7 Unspecified visual loss; I49.5 Sick sinus syndrome; E83.39 Other disorders of phosphorus metabolism; Z99.2 Dependence on renal dialysis
CPT/HCPCS: 31500; 36415; 36600; 70450; 71045; 80048; 80053; 80202; 80307; 81001; 82306; 82607; 82728; 82746; 82805; 82962; 83036; 83605; 83615; 83735; 83880; 84100; 84443; 84484; 85025; 85379; 85610; 85730; 86141; 87040; 87070; 87077; 87081; 87186; 87205; 87426; 90935; 92950; 93005; 93306; 94002; 94003; 94640; 94660; 96365; 96366; 96375; 97163; 99291; 99292; A4618; G0378; J0330; J0461; J1100; J1815; J2185; J2250; J2704; J3490; J7060; P9047